=== PATIENT | male | born 1960 | race African-American/Black ===

== ENCOUNTER 2016-10-11 08:13 | Inpatient (IN) | payer MEDICAID ==
[~2016-10-11] VITALS: Ht 177.8 cm; Wt 89.6 kg
[~2016-10-11 08:13] MED LIST: ASPI81TA27 PO; ATOR20TA PO; CLON0.1T PO; FERR325T50 PO; INSLANTI SC; INSR100KIT SC; METO-158 PO
[2016-10-11 09:16] LABS: Basophils # (auto) 0 uL; Basophils % (auto) 0.3 % (0.0-2.0); DEFINITIVE VIEW TRANSMISSION; Eosinophils # (auto) 0 uL; Eosinophils % (auto) 0.7 % (0.0-7.0); Hematocrit 24.3 % (41.0-53.0); Lymphocytes % (auto) 14.9 % (10.0-50.0); Mean Corpuscular Hemoglobin 29.7 pg (28.0-32.0); Mean Corpuscular Volume 89.9 fL (80.0-100.0); Mean Platelet Volume 7.7 fL (7.4-10.4); Monocytes # (auto) 0.3 uL; Monocytes % (auto) 5.1 % (0.0-12.0); Neutrophils # (auto) 5.2 uL; Platelet Count (auto) 271 10^3/uL (140-450); Red Cell Distribution Width 14.4 % (11.6-16.0); White Blood Cell 6.5 10^3/uL (4.4-10.8)
[2016-10-11 09:40] LABS: Albumin 3.1 g/dL (3.4-5.0); BUN/Creatinine Ratio 9.6; Bilirubin, Total 0.4 mg/dL (0.2-1.0); Calcium 7.5 mg/dL (8.5-10.1); Potassium 5.4 mmol/L (3.5-5.1); Total Protein 6.2 g/dL (6.4-8.2)
[2016-10-11] MEDS ORDERED: LACTULOSE 20Gm/30ML SOLN PO PRN (12:30)
[2016-10-11] MEDS ORDERED: DEXTROSE (50%) 50ML SYRG IV PRN (12:30)
[2016-10-11] MEDS ORDERED: ACETAMINOPHEN 500 MG TAB PO PRN (12:30)
[2016-10-11] MEDS ORDERED: TEMAZEPAM 15 MG CAP PO PRN (12:30)
[2016-10-11] MEDS ORDERED: NITROGLYCERIN 0.4 MG SL TAB SL PRN (12:30)
[2016-10-11] MEDS ORDERED: LORazepam 0.5 MG TAB PO PRN (12:30)
[2016-10-11] MEDS ORDERED: HYDROcodone-ACET 5/325MG TAB PO PRN (12:30)
[2016-10-11] MEDS ORDERED: PROMETHAZINE HCL 25 MG/ML 1ML IV PRN (12:30)
[2016-10-11] MEDS ORDERED: MORPHINE SULF INJ 2 MG/ML SYRINGE 1ML IV PRN ×2 (12:30)
[2016-10-11] MEDS ORDERED: METOPROLOL TARTRATE 50 MG TAB PO ONE (13:15)
[2016-10-11] MEDS ORDERED: ASPirin 81 mg TAB PO ONE (13:15)
[2016-10-11] MEDS ORDERED: ATORVASTATIN 20 MG TAB PO ONE (13:15)
[2016-10-11] MEDS ORDERED: FERROUS SULFATE 325 MG TAB PO ONE (13:15)
[2016-10-11] MEDS: ENOXAPARIN SOD 30 MG/0.3 ML SYRINGE SC SCH (13:17)
[2016-10-11 13:42] LABS: Temperature: 23.1 C (20.0-25.0)
[2016-10-11 14:36] LABS: Urine Bilirubin Negative (Negative); Urine Color Yellow (Yellow); Urine Hyaline Cast FEW /lpf (0 - 2); Urine Ketone Negative (Negative); Urine Nitrite Negative (Negative); Urine RBC 1 /hpf (0 - 3); Urine Squamous Epithelial Cell FEW /hpf (<5); Urine Urobilinogen Normal (Negative); Urine pH 6.5 (5.0-8.0)
[2016-10-11 14:37] LABS: Urine Blood 1+ /uL (Negative); Urine Glucose 1+ mg/dL (Normal)
[2016-10-11] MEDS: cloNIDine HCL 0.1 MG TAB PO PRN (14:41)
[2016-10-11 17:00] VITALS: BP 167/82
[2016-10-11] MEDS: InsuLIN REG 1unit/0.01ml Soln (100units/ml) SC SCH ×2 (17:00→23:59)
[2016-10-11] MEDS: ACCU-CHEK COMFORT CURVE STRIP VI SCH ×2 (17:00→22:58)
[2016-10-11 19:05] VITALS: BP 177/100
[2016-10-11] MEDS ORDERED: cefTRIAXone 1GM/50ML D5W 50 ML IV ONE (21:15)
[2016-10-11 22:00] VITALS: BP 157/93
[2016-10-11] MEDS ORDERED: INSULIN DETEMIR(LEVEMIR) 1unit/0.01ml Soln (100units/ml) SC SCH (22:00)
[2016-10-11] MEDS: METOPROLOL TARTRATE 50 MG TAB PO SCH (22:57)
[2016-10-12 05:00] VITALS: BP 151/100
[2016-10-12 06:35] LABS: Albumin 2.5 g/dL (3.4-5.0); BUN/Creatinine Ratio 10.3; Bilirubin, Total 0.2 mg/dL (0.2-1.0); Calcium 7.3 mg/dL (8.5-10.1); Potassium 5.3 mmol/L (3.5-5.1); Total Protein 5.1 g/dL (6.4-8.2)
[2016-10-12] MEDS: InsuLIN REG 1unit/0.01ml Soln (100units/ml) SC SCH ×4 (06:42→22:00)
[2016-10-12] MEDS: ACCU-CHEK COMFORT CURVE STRIP VI SCH ×4 (06:42→22:00)
[2016-10-12] MEDS: cloNIDine HCL 0.1 MG TAB PO PRN (06:43)
[2016-10-12 08:23] VITALS: BP 167/97
[2016-10-12] MEDS: cefTRIAXone 1GM/50ML D5W 50 ML IV SCH (09:38)
[2016-10-12] MEDS: ATORVASTATIN 20 MG TAB PO SCH (09:38)
[2016-10-12] MEDS: ENOXAPARIN SOD 30 MG/0.3 ML SYRINGE SC SCH (09:38)
[2016-10-12] MEDS: ASPirin 81 mg TAB PO SCH (09:39)
[2016-10-12] MEDS: METOPROLOL TARTRATE 50 MG TAB PO SCH ×2 (09:39→22:49)
[2016-10-12] MEDS: FERROUS SULFATE 325 MG TAB PO SCH (09:39)
[2016-10-12 13:02] VITALS: BP 113/76
[2016-10-12] MEDS ORDERED: LORazepam 2MG/ML-1ML VIAL IV ONE (14:15)
[2016-10-12 17:12] VITALS: BP 154/101
[2016-10-12 22:00] VITALS: BP 190/104
[2016-10-13] MEDS: cloNIDine HCL 0.1 MG TAB PO PRN ×2 (02:34→17:27)
[2016-10-13 05:00] VITALS: BP 176/99
[2016-10-13 05:36] LABS: Basophils # (auto) 0 uL; Basophils % (auto) 0.5 % (0.0-2.0); DEFINITIVE VIEW TRANSMISSION; Eosinophils # (auto) 0.1 uL; Eosinophils % (auto) 1.9 % (0.0-7.0); Hematocrit 22.1 % (41.0-53.0); Hemoglobin 7.4 g/dL (13.5-17.5); Lymphocytes # (auto) 1.5 uL; Mean Corpuscular Hemoglobin 30.3 pg (28.0-32.0); Mean Corpuscular Hgb Conc. 33.5 g/dL (32.0-36.0); Mean Corpuscular Volume 90.3 fL (80.0-100.0); Monocytes # (auto) 0.6 uL; Monocytes % (auto) 9.6 % (0.0-12.0); Neutrophils # (auto) 3.7 uL; Platelet Count (auto) 235 10^3/uL (140-450); White Blood Cell 5.9 10^3/uL (4.4-10.8)
[2016-10-13 05:56] LABS: Potassium 5.4 mmol/L (3.5-5.1)
[2016-10-13 06:00] LABS: BUN/Creatinine Ratio 10.1; Calcium 7.3 mg/dL (8.5-10.1); Magnesium 1.7 mg/dL (1.6-2.6)
[2016-10-13] MEDS: ACCU-CHEK COMFORT CURVE STRIP VI SCH ×4 (07:00→22:29)
[2016-10-13] MEDS: InsuLIN REG 1unit/0.01ml Soln (100units/ml) SC SCH ×4 (07:00→22:44)
[2016-10-13 07:56] VITALS: BP 163/99
[2016-10-13 08:51] LABS: Urine Bilirubin Negative (Negative); Urine Ketone Negative (Negative); Urine Nitrite Negative (Negative); Urine RBC 6 /hpf (0 - 3); Urine Squamous Epithelial Cell FEW /hpf (<5); Urine Urobilinogen Normal (Negative); Urine pH 6.5 (5.0-8.0)
[2016-10-13 09:04] LABS: Urine Blood 1+ /uL (Negative); Urine Color Straw (Yellow); Urine Glucose 1+ mg/dL (Normal)
[2016-10-13] MEDS: cefTRIAXone 1GM/50ML D5W 50 ML IV SCH (09:17)
[2016-10-13] MEDS: ATORVASTATIN 20 MG TAB PO SCH (09:19)
[2016-10-13] MEDS: FERROUS SULFATE 325 MG TAB PO SCH (09:19)
[2016-10-13] MEDS: METOPROLOL TARTRATE 50 MG TAB PO SCH ×2 (09:20→22:29)
[2016-10-13] MEDS: ENOXAPARIN SOD 30 MG/0.3 ML SYRINGE SC SCH (09:21)
[2016-10-13] MEDS: ASPirin 81 mg TAB PO SCH (09:21)
[2016-10-13] MEDS ORDERED: DEXTROSE (50%) 50ML SYRG IV ONE (13:45)
[2016-10-13] MEDS ORDERED: CALCIUM GLUC 4.65 MEQ/10ML 4.65 MEQ in SODIUM CHL 0.9% 50 ML IV ONE (13:45)
[2016-10-13] MEDS ORDERED: InsuLIN REG 1unit/0.01ml Soln (100units/ml) IV ONE (13:45)
[2016-10-13] MEDS ORDERED: SODIUM POLYSTYRENE SULF 15GM/60ML SUSP PO ONE (13:45)
[2016-10-13] MEDS ORDERED: hydrALAZINE HCL 25 MG TAB PO ONE (14:45)
[2016-10-13 17:21] VITALS: BP 175/109
[2016-10-13 22:00] VITALS: BP 160/97
[2016-10-13] MEDS: hydrALAZINE HCL 25 MG TAB PO SCH (22:29)
[2016-10-14] MEDS: cloNIDine HCL 0.1 MG TAB PO PRN (04:46)
[2016-10-14 05:00] VITALS: BP 177/93
[2016-10-14 05:21] LABS: Basophils # (auto) 0 uL; Basophils % (auto) 0.5 % (0.0-2.0); DEFINITIVE VIEW TRANSMISSION; Eosinophils # (auto) 0.1 uL; Eosinophils % (auto) 1.5 % (0.0-7.0); Hematocrit 23.8 % (41.0-53.0); Hemoglobin 7.9 g/dL (13.5-17.5); Lymphocytes # (auto) 1.2 uL; Lymphocytes % (auto) 17.9 % (10.0-50.0); Mean Corpuscular Hemoglobin 29.8 pg (28.0-32.0); Mean Corpuscular Hgb Conc. 33.1 g/dL (32.0-36.0); Mean Corpuscular Volume 89.9 fL (80.0-100.0); Mean Platelet Volume 7.8 fL (7.4-10.4); Monocytes # (auto) 0.5 uL; Monocytes % (auto) 8.5 % (0.0-12.0); Neutrophils # (auto) 4.6 uL; Neutrophils % (auto) 71.6 % (37.0-80.0); Platelet Count (auto) 262 10^3/uL (140-450); Red Cell Distribution Width 14.6 % (11.6-16.0); White Blood Cell 6.4 10^3/uL (4.4-10.8)
[2016-10-14 05:45] LABS: Calcium 7.7 mg/dL (8.5-10.1); Phosphorus 4.7 mg/dL (2.6-4.90); Potassium 5.2 mmol/L (3.5-5.1); Uric Acid 6.5 mg/dL (3.5-7.2)
[2016-10-14] MEDS: ACCU-CHEK COMFORT CURVE STRIP VI SCH ×2 (07:00→11:30)
[2016-10-14] MEDS: InsuLIN REG 1unit/0.01ml Soln (100units/ml) SC SCH ×2 (07:00→11:30)
[2016-10-14 08:46] VITALS: BP 164/97
[2016-10-14] MEDS: ATORVASTATIN 20 MG TAB PO SCH (09:29)
[2016-10-14] MEDS: FERROUS SULFATE 325 MG TAB PO SCH (09:29)
[2016-10-14] MEDS: ASPirin 81 mg TAB PO SCH (09:29)
[2016-10-14] MEDS: METOPROLOL TARTRATE 50 MG TAB PO SCH (09:30)
[2016-10-14] MEDS: hydrALAZINE HCL 25 MG TAB PO SCH (09:30)
[2016-10-14] MEDS: ENOXAPARIN SOD 30 MG/0.3 ML SYRINGE SC SCH (09:30)
[2016-10-14 12:00] VITALS: BP 154/85
[2016-10-14 12:32] VITALS: BP 154/85
[2016-10-14 13:00] VITALS: BP 154/85
[2016-10-14] MEDS ORDERED: SODIUM POLYSTYRENE SULF 15GM/60ML SUSP PO ONE (14:15)
== END 2016-10-14 16:20 | disposition home health service (06) | DRG 460 ==
LOC: EDUNIT# 08:13 → ER 08:23 → TELE 08:24 → TELE-WESTW 16:52 → WEST WING 10-13 23:02
PROVIDERS: ADMIT Internal Medicine; ATTEND Internal Medicine
DX: N17.0 Acute kidney failure with tubular necrosis (principal); G93.41 Metabolic encephalopathy; E11.21 Type 2 diabetes mellitus with diabetic nephropathy; E87.5 Hyperkalemia; N18.4 Chronic kidney disease, stage 4 (severe); E11.22 Type 2 diabetes mellitus with diabetic chronic kidney disease; E78.5 Hyperlipidemia, unspecified; I12.9 Hypertensive chronic kidney disease with stage 1 through stage 4 chronic kidney disease, or unspecified chronic kidney disease; D63.8 Anemia in other chronic diseases classified elsewhere; Z86.73 Personal history of transient ischemic attack (TIA), and cerebral infarction without residual deficits; Z79.82 Long term (current) use of aspirin; Z82.3 Family history of stroke; Z82.49 Family history of ischemic heart disease and other diseases of the circulatory system; Z83.3 Family history of diabetes mellitus; Z87.891 Personal history of nicotine dependence; Z98.890 Other specified postprocedural states
CPT/HCPCS: 36415; 70450; 70551; 71010; 71250; 76775; 80048; 80053; 80061; 81001; 82550; 82570; 82607; 82746; 82962; 83036; 83540; 83550; 83735; 84100; 84132; 84156; 84300; 84443; 84484; 84550; 85025; 85652; 86850; 86900; 86901; 87086; 93886; 95819; 97001; 97116; 97530; G0434; J0696; J1815